=== PATIENT | female | born 1935 | race Caucasian/White ===

== ENCOUNTER 2022-03-28 09:16 | Inpatient (IN) ==
--- NOTE | 2022-03-22 12:42 | Anesthesiology Consultation ---
Date of Service March 22, 2022 Assessment & Plan (1) Encounter for pre-operative examination: Chart Review Chart Review: Acceptable Risk for Surgery (pending preop Covid testing results ) and Patient NOT seen in Pre Admission Testing - Check BSG AM DOS Per nursing assessment 03/22/2022, pt traveled to [place] over . Traveled to daughter's home by private vehicle, unmasked. No known Covid positive exposures or Covid related symptoms. No known Covid infection in the past 90 days. Pt is NOT vaccinated for Covid. Preop Covid testing scheduled 03/23/22= will await results. Preop Covid testing will be five days old due to iday weekend- will order Francois for DOS. Seen by PCP 02/23/2022 = seen for preop clearance. Patient has had many procedures in the pastmost recently mastectomy without complications with sedation or anesthesia except nausea in the aftermath. "Based on my interpretation of patient's history, physical examination, and findings as well as most recent lab and cardiopulmonary results, the proposed procedure of SIJ fusion, along with appropriate anesthesia, would not pose above average risk. No further investigation is warranted my opinion is the patient's primary care physician. Patient is therefore cleared for procedure." History Surgery Operation Date: 03/28/22 12:25 Proposed Procedures p Right Sacroiliac Joint Fusion - Kai Chiang DO Height/Weight Height: 5 ft 4 in Weight: 73.482 kg Allergies Allergy/AdvReac Type Severity Reaction Status Date / Time No Known Allergies Allergy Verified 03/22/22 11:08 Medications Home Medications Medication Instructions Recorded Confirmed Last Taken Prevagen 2 gummy PO QAM 03/22/22 03/22/22 Unknown acetaminophen 650 mg 650 mg PO Q8H PRN 03/22/22 03/22/22 Unknown tablet,extended release (Tylenol Arthritis Pain) cholecalciferol (vitamin D3) 125 125 mcg PO QAM 03/22/22 03/22/22 Unknown mcg (5,000 unit) tablet coenzyme Q10 100 mg capsule 200 mg PO QPM 03/22/22 03/22/22 Unknown (CoQ-10) gabapentin 300 mg tablet 300 mg PO BID 03/22/22 03/22/22 Unknown ibuprofen 800 mg tablet 800 mg PO TID PRN 03/22/22 03/22/22 Unknown lisinopril 10 mg tablet 10 mg PO QAM 03/22/22 03/22/22 Unknown magnesium oxide 250 mg PO QAM 03/22/22 03/22/22 Unknown metformin 500 mg tablet 500 mg PO QPM 03/22/22 03/22/22 Unknown oxybutynin chloride 5 mg tablet 5 mg PO QAM 03/22/22 03/22/22 Unknown pioglitazone 30 mg tablet (Actos) 30 mg PO QPM 03/22/22 03/22/22 Unknown pravastatin 40 mg tablet 40 mg PO HS 03/22/22 03/22/22 Unknown turmeric root extract 500 mg 500 mg PO QAM 03/22/22 03/22/22 Unknown capsule vitamin B complex 1 cap PO QAM 03/22/22 03/22/22 Unknown Past Medical History Medical History (Updated 03/22/22 @ 12:35 by Klaudia Cunningham PA-C) Breast cancer Per PCP records S/p mastectomy Diabetes mellitus, type 2 HTN (hypertension) Per PCP records Hx of cataract Unsure which eye Hyperlipidemia 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 Nausea and vomiting after administration of anesthetic agent Past Family History Family History Father Diabetes Brother Diabetes Past Surgical History Surgical History (Updated 03/22/22 @ 12:40 by Klaudia Cunningham PA-C) History of cholecystectomy History of colonoscopy History of mastectomy Per PCP records Hx of skin graft right hand d/t arguelles Hx of spinal fusion 2017 - [facility] Social History Smoking Status: Former smoker Smoking End Date: 60 years ago Hx Alcohol Use: No Hx Substance Use: No substance use type: does not use Testing Laboratory Results 02/22/22= WBC: 8.14 H/H: 12.0/37.7 PLATELETS: 285 SODIUM: 141 POTASSIUM: 4.3 CHLORIDE: 108 CO2: 23.6 BUN: 1.08 CREATININE: 20.2 GLUCOSE: 177 PT: 11.3 INR: 1.00 UA: Turbid, trace urine blood, large leukocyte esterase Electrocardiogram Date: 02/22/22 Sinus rhythm with sinus arrhythmia with first-degree AV block at 74 bpm. Low QRS voltage in chest leads. Cannot rule out an age-indeterminate septal infarct. (EKG reviewed by PCP per 02/23/22 PCP note- patient cleared for procedure) Chest X-Ray Date: 02/22/22 Findings: + NAD Left sided aortic arch contains atherosclerotic calcification.
--- NOTE | 2022-03-28 09:14 | History & Physical Bridge Note ---
Date of Service March 28, 2022 History & Physical Bridge Note I have examined the patient, reviewed the History & Physical and in the interval since the performance of the History & Physical I have noted the following changes of clinical significance: no changes noted
--- NOTE | 2022-03-28 09:15 | History & Physical Report ---
Date of Service March 28, 2022 Assessment & Plan (1) Sacroiliitis: Plan: Right sacroiliac joint fusion History of Present Illness Chief Complaint: Sacroiliitis Primary Care Provider: NO PCP This is an 87-year-old female known to me presents with chronic persistent sacroiliitis. Failing course of nonoperative care she is here for surgical invention. Allergies Allergy/AdvReac Type Severity Reaction Status Date / Time No Known Allergies Allergy Verified 03/22/22 11:08 Home Medications Medication Instructions Recorded Confirmed Type Prevagen 2 gummy PO QAM 03/22/22 03/22/22 History acetaminophen 650 mg 650 mg PO Q8H PRN 03/22/22 03/22/22 History tablet,extended release (Tylenol Arthritis Pain) cholecalciferol (vitamin D3) 125 125 mcg PO QAM 03/22/22 03/22/22 History mcg (5,000 unit) tablet coenzyme Q10 100 mg capsule 200 mg PO QPM 03/22/22 03/22/22 History (CoQ-10) gabapentin 300 mg tablet 300 mg PO BID 03/22/22 03/22/22 History ibuprofen 800 mg tablet 800 mg PO TID PRN 03/22/22 03/22/22 History lisinopril 10 mg tablet 10 mg PO QAM 03/22/22 03/22/22 History magnesium oxide 250 mg PO QAM 03/22/22 03/22/22 History metformin 500 mg tablet 500 mg PO QPM 03/22/22 03/22/22 History oxybutynin chloride 5 mg tablet 5 mg PO QAM 03/22/22 03/22/22 History pioglitazone 30 mg tablet (Actos) 30 mg PO QPM 03/22/22 03/22/22 History pravastatin 40 mg tablet 40 mg PO HS 03/22/22 03/22/22 History turmeric root extract 500 mg 500 mg PO QAM 03/22/22 03/22/22 History capsule vitamin B complex 1 cap PO QAM 03/22/22 03/22/22 History Past Med/Surg History Medical History (Updated 03/28/22 @ 09:15 by Kai Chiang DO) Breast cancer Per PCP records S/p mastectomy Diabetes mellitus, type 2 HTN (hypertension) Per PCP records Hx of cataract Unsure which eye Hyperlipidemia 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 Nausea and vomiting after administration of anesthetic agent Surgical History (Updated 03/22/22 @ 12:40 by Klaudia Cunningham PA-C) History of cholecystectomy History of colonoscopy History of mastectomy Per PCP records Hx of skin graft right hand d/t arguelles Hx of spinal fusion 2017 - [facility] Family History Father Diabetes Brother Diabetes Social History Smoking Status: Former smoker Smoking End Date: 60 years ago; Second Hand Exposure: No; Tobacco Cessation Education Requested by Patient: No Hx Alcohol Use: No Hx Substance Use: No Preferred Language: Swiss Communication Ability: Effective 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
[~2022-03-28 09:16] MED LIST: ACETAMINOPHEN 500 MG TAB PO SCH; CeleBREX 200 MG CAP PO SCH; GABAPENTIN 300 MG CAP PO SCH; LR 15ML/HR IV SCH; ceFAZolin 1000MG 1,000 MG/7.5 ML SYR IV SCH
[2022-03-28] MEDS ORDERED: fentaNYL citrate 100 MCG/2 ML VIAL ONE (09:36)
[2022-03-28] MEDS ORDERED: LABETALOL HCL IV 5 MG/ML 20ML IV PRN (10:00)
[2022-03-28] MEDS ORDERED: PROMETHAZINE HCL 6.25 MG in SODIUM CHLORIDE 0.9% 50 ML IV PRN (10:00)
[2022-03-28] MEDS ORDERED: ATROPINE SULFATE 0.1 MG/ML 10ML SYR IV PRN (10:00)
[2022-03-28] MEDS ORDERED: ONDANSETRON INJ 2 MG/ML 2 ML VIAL IV PRN (10:00)
[2022-03-28] MEDS ORDERED: HYDROmorphone INJ 1 MG/ML SYRINGE IV PRN (10:00)
[2022-03-28] MEDS ORDERED: BUPIVACAINE 0.5 % 5 MG/1 ML MPF 30ML VIAL INFIL ONE (11:03)
[2022-03-28] MEDS ORDERED: LIDOCAINE 2% 2 ML VIAL/AMP(20MG/ML) INFIL ONE (11:10)
[2022-03-28] MEDS ORDERED: ePHEDrine sulfate 50 MG/ML AMP ONE (11:10)
[2022-03-28] MEDS ORDERED: ROCURONIUM BROMIDE 10 MG/ML 5 ML VIAL IV ONE (11:10)
[2022-03-28] MEDS ORDERED: DEXAMETHASONE SOD INJ 4 MG/ML VIAL ONE (11:10)
[2022-03-28] MEDS ORDERED: PROPOFOL IV EMULSION 10 MG/ML 20 ML VIAL IV ONE (11:10)
[2022-03-28] MEDS ORDERED: ONDANSETRON INJ 2 MG/ML 2 ML VIAL ONE (11:10)
[2022-03-28] MEDS ORDERED: FLOSEAL HEMOSTATIC MATRIX 10ML TOP ONE (11:23)
[2022-03-28] MEDS ORDERED: oxyCODONE HCL IR 5 MG TAB (IMMEDIATE RELEASE) PO PRN ×2 (11:28)
[2022-03-28] MEDS ORDERED: traMADol HCL 50 MG TABLET PO PRN ×2 (11:28)
[2022-03-28] MEDS ORDERED: HYDROmorphone INJ 0.5 MG/0.5 ML SYR IV PRN ×2 (11:28)
--- NOTE | 2022-03-28 11:28 | Operative Report ---
Post Operative Report Pre & Post Diagnosis Operation Date: 03/28/22 10:05 Pre-Op Diagnosis: SI Joint Dysfunction Post-Op Diagnosis: SI Joint Dysfunction I identified the patient and participated in the time-out.: Yes Procedure Operation Date: 03/28/22 10:05 Actual Procedures 1 open right SI joint fusion. #2 placement of 20 mm allograft filled with I fa ctor into the right SI joint. #3 placement of 2 globus SI screws 50 and 40 mm in length PASCUAL-coated and filled with I factor and locally harvested morselized autograft. Surgeon Kai Chiang, Commercial Housekeeper Aruna Chen Estimated Blood Loss 20 Findings Consistent with Post-Op Diagnosis Specimens none Indications This is an 87-year-old female who presents with chronic persistent right sacroiliitis. Failing course of nonoperative care she is here for surgical invention. Description of Procedure Patient was met with identified informed consent obtained. Patient was then taken to the operative suite underwent intubation placed in a prone position on the Dominguez table with chest padded hip bolsters. At this point the right upper buttock was prepped and draped in normal sterile fashion. With the assistance of fluoroscopy identified the right SI joint. I 3 cm incision was then placed over the right aspect of the posterior SI joint. Sharp dissection formed down to the ligaments. A guidewire was then placed into the right SI joint verified position with fluoroscopy in AP and lateral views. A dilator was then placed over the guidewire directly into the joint and the proper location. I then placed a working cannula over the dilator and the dilator was removed. I then drilled out the joint as well as used a box chisel to remove all cartilaginous bone. I then placed a 20 mm bony allograft filled with I factor directly in the joint. After this was tapped into position the working cannula was removed and created a second incision over the right aspect of the upper buttock on plane with the posterior sacral slope. This approximately 3 cm incision. A guidewire was then inserted and using a lateral inlet and outlet views a guidewire was placed along the proximal aspect of the right SI joint. Once I was satisfied with the positioning. Dilators were used and a drilled across the joint subsequently pacing a 50 m PASCUAL-coated slotted screw filled locally harvested morselized autograft and I factor across the joint. Demonstrated excellent alignment purchase. Then placed a distal guidewire in a similar fashion. This screw was 40 mm in length PASCUAL-coated slotted filled with locally harvested morselized autograft and I factor. It also demonstrated excellent alignment and purchase. The incisions were then copiously irrigated and closed with subcutaneous Vicryl and 4 Monocryl for final skin closure. Steri-Strip sterile dressings placed. Patient will continue PACU stable condition. Please note Aruna Chen was present out the entire procedure involved the patient positioning complex portions of the surgery and fascial closure. I attest to the content of the Intraoperative Record and any orders documented therein. Any exceptions are noted below.
--- NOTE | 2022-03-28 12:04 | Fluoroscopy Report ---
INTRAOPERATIVE RADIOGRAPHS CLINICAL HISTORY: Right sacroiliac joint fusion. Fluoroscopy time: 92 seconds. FINDINGS: 3 spot fluoroscopic views of the sacrum are presented. 2 cortical lag screws transfix the r ight sacroiliac joint. The orthopedic hardware appears intact. Lumbosacral fusion hardware is partial ly visualized. IMPRESSION: Intraoperative images from the right sacroiliac joint fusion as above. Electronically signed by: Calixto Luna M.D. 03/28/2022 12:02 PM
--- NOTE | 2022-03-28 13:00 | Anesthesiology Progress Note ---
Date of Service March 28, 2022 Anesthesia Post Procedure Vital Signs Vital Signs: Temp Pulse Pulse Resp BP Pulse Ox 03/28/22 12:25 36.3 C L 68 16 163/62 H 98 03/28/22 12:20 63 13 147/60 H 98 03/28/22 12:10 36.3 C L 66 12 150/62 H 99 03/28/22 12:00 71 14 155/65 H 100 03/28/22 11:50 71 14 154/70 H 100 03/28/22 11:41 36.1 C L 84 16 163/69 H 100 03/28/22 09:36 36.6 C 72 20 119/97 96 Pain Intensity Right Hip: Pain Intensity: 0 Transfer of Care Handoff Completed per policy Notes Mental Status: alert / awake / arousable Patient Amnestic to Procedure: Yes Nausea / Vomiting: adequately controlled Pain: adequately controlled Airway Patency, RR, SpO2: stable & adequate BP & HR: stable & adequate Hydration State: stable & adequate Anesthetic Complications: no major complications apparent
== END 2022-03-28 14:00 | disposition home or self-care (01) | DRG 460 ==
LOC: ASU 09:16 → EDINP 09:30 → ASU 14:00